=== PATIENT | female | born 1925 | race Caucasian/White ===

== ENCOUNTER 2016-09-29 10:53 | Emergency (ER) | payer MEDICARE, BC ==
--- NOTE | 2016-09-29 11:22 | ERPHSYRPT ---
- History of Present Illness Time Seen by Provider: 09/29/16 11:17 Source: patient, EMS Patient Subjective Stated Complaint: fall Triage Nursing Assessment: states she remembers falling but doesnt remember why she fell. she is pleasantly confused (normal per report). pain with movement to lt hip. no bruising or swelling noted. pain with palpation. no shortening or rotation noted. good sensation. pedal pulse present Physician History: The patient is an 89-year-old female with mild dementia complaining of falling and hurting her left hip just prior to arrival. She lives in a skilled nursing. She has a past medical history of dementia and hypertension. She tells me that her hip hurts. She doesn't know why she fell. Occurred: just prior to arrival Reason for Fall: unknown Injuries/Pain Location: lower extremity (left hip) Loss of Consciousness: no loss of consciousness Quality: sharpness Severity of Pain-Max: moderate Severity of Pain-Current: moderate Modifying Factors: Improves With: nothing Associated Symptoms (Fall): denies symptoms Allergies/Adverse Reactions: No Known Drug Allergies Allergy (Verified 09/29/16 11:02) Home Medications: Donepezil HCl 10 mg [Aricept 10 MG] 10 mg PO DAILY 02/28/13 [History] Phenytoin Sod Extended 100 mg* [Dilantin 100 MG] 200 mg PO DAILY 02/28/13 [ History] Multivitamin with Minerals [One Daily Energy] 1 tab PO DAILY 06/19/13 [History] Lisinopril/Hydrochlorothiazide [Lisinopril-Hctz 20-25 mg Tab] 20 - 25 mg PO DAILY 10/15/13 [History] Naproxen Sodium 220 mg [Aleve 220 MG] 220 mg PO DAILY PRN PRN 10/15/13 [ History] Polyethylene Glycol 3350 [Miralax Powder] 119 g PO DAILY 09/29/16 [History] Hx Tetanus, Diphtheria Vaccination/Date Given: Yes Hx Influenza Vaccination/Date Given: Yes Hx Pneumococcal Vaccination/Date Given: No Immunizations Up to Date: Yes - Review of Systems Constitutional: No Fever, No Chills Eyes: No Symptoms Ears, Nose, & Throat: No Symptoms Respiratory: No Cough, No Dyspnea Cardiac: No Chest Pain, No Edema, No Syncope Abdominal/Gastrointestinal: No Abdominal Pain, No Nausea, No Vomiting, No Diarrhea Genitourinary Symptoms: No Dysuria Musculoskeletal: Fall, Injury Skin: No Rash Neurological: No Dizziness, No Focal Weakness, No Sensory Changes Psychological: No Symptoms Endocrine: No Symptoms Hematologic/Lymphatic: No Symptoms Immunological/Allergic: No Symptoms All Other Systems: Reviewed and Negative - Past Medical History Pertinent Past Medical History: Yes Neurological History: Dementia, Seizures ENT History: Cataracts Cardiac History: Hypertension Respiratory History: No Pertinent History Endocrine Medical History: No Pertinent History Musculoskeletal History: Arthritis GI Medical History: Diverticulosis History: No Pertinent History Psycho-Social History: No Pertinent History Female Reproductive Disorders: Breast Cancer Other Medical History: breast ca, Gerd - Past Surgical History Past Surgical History: Yes Neuro Surgical History: No Pertinent History Cardiac: No Pertinent History Respiratory: No Pertinent History Gastrointestinal: No Pertinent History Genitourinary: No Pertinent History Musculoskeletal: Orthopedic Surgery Female Surgical History: Mastectomy Other Surgical History: cataracts removed. knee replacement. hip replacement - Social History Smoking Status: Never smoker Exposure to second hand smoke: No Alcohol Use: None Drug Use: none Patient Lives Alone: No Significant Family History: no pertinent family hx - Female History Hx Now: No - Nursing Vital Signs Nursing Vital Signs: Initial Vital Signs Temperature 98.0 F Temperature Source Oral Pulse Rate 64 Respiratory Rate 18 Blood Pressure [] 125/59 Pain Intensity 0 - [place] Coma Score Best Eye Response ([place]): (4) open spontaneously Best Verbal Response ([place]): (5) oriented Best Motor Response ([place]): (6) obeys commands [place] Total: 15 - Physical Exam General Appearance: no apparent distress, alert Head Injury: no evidence of injury Eye Exam: PERRL/EOMI ENT Exam: airway nml Neck Exam: normal inspection, No tenderness Respiratory/Chest Exam: normal breath sounds, No chest tenderness, No respiratory distress Cardiovascular Exam: normal heart sounds, regular rate/rhythm Gastrointestinal Exam: soft, No tenderness, No distention, No guarding, No ecchymosis Rectal Exam: not done Extremity Exam: limited range of motion, hip tenderness (left), other (mid shortening of left leg) Neurologic Exam: alert, oriented x 3, cooperative, sensation nml, No motor deficits Skin Exam: normal color, warm, dry SpO2 Interpretation: normal SpO2: 100 Oxygen Delivery: Room Air - Radiology Exams Left Hip X-ray Interpretation: Teleradiologist Report, Displaced Fracture (left acetabululm roof fracture) Ordered Tests: Active Orders 24 hr Category Date Time Status IV Insertion STAT Care 09/29/16 11:59 Active HIP UNI (2V) INCL PEL IF DONE Stat Exams 09/29/16 11:23 Completed - Progress Progress: unchanged Counseled pt/family regarding: rad results (Discussed findings with Jonny Stubbs, son.) - Departure Time of Disposition: 12:38 Departure Disposition: Transfer (Transfer to [facility] ER per Ty Parker and Adi) Clinical Impression: Hip fracture Condition: Stable Critical Care Time: No
--- NOTE | 2016-09-29 12:14 | XRAY ---
Indication: Pain following fall. Comparison: None AP pelvis and 2 views of the left hip demonstrates minimally displaced acute fracture involving the roof of the left acetabulum extending to the iliopectinate line. Both hip articulation intact with note of previous right total hip arthroplasty. Age-related osteopenia and lower lumbar spine degenerative changes. Impression: Left superior acetabular roof fracture. Incidental osteopenia, degenerative changes, and right total hip arthroplasty.
[2016-09-29 13:09] VITALS: BP 160/77; PULSE 82; O2SAT 98
== END 2016-09-29 13:20 | disposition short-term general hospital (02) ==
LOC: ED 10:53
DX: S32.482A Displaced dome fracture of left acetabulum, initial encounter for closed fracture (principal); F03.90 Unspecified dementia, unspecified severity, without behavioral disturbance, psychotic disturbance, mood disturbance, and anxiety; I10 Essential (primary) hypertension; W19.XXXA Unspecified fall, initial encounter; Y92.129 Unspecified place in nursing home as the place of occurrence of the external cause
CPT/HCPCS: 36000; 51702; 73502; 87077; 87086; 87186; 93041; 99284; 99285